=== PATIENT | female | born 2000 | race Caucasian/White ===

== ENCOUNTER 2023-03-15 21:09 | Emergency (ER) | payer OTHER, SELFPAY ==
[2023-03-15] VITALS (15 sets, daily range): BP systolic 115–187; BP diastolic 82–159; PULSE 94–123; RESP 12–18; TEMP 36.9; O2SAT 98–100
[2023-03-15 21:39] LABS: Abs Immature Grans 0.01 10^3/uL (0.0-0.06); Absolute Basophil Count 0.08 10^3/uL (0.0-0.2); Absolute Eosinophil Count 0.98 10^3/uL (0.0-0.7); Absolute Monocyte Count 1.01 10^3/uL (0.1-0.8); Absolute Neutrophil Count 3.32 10^3/uL (1.2-6.7); Basophils % 0.9; Eosinophils % 10.7; HCT 40.5 % (36.0-46.0); HGB 14.4 g/dL (11.2-15.7); Immature Grans % 0.1; Lymphocytes % 41.3; MCH 29.9 pg (27.0-33.0); MCHC 35.6 % (32.0-36.0); MCV 84 fL (80-95); MPV 9.5 fL (8.0-11.0); Platelet Count 275 10^3/uL (130-400); RBC 4.82 10^6/uL (3.93-5.22); RDW 11.8 % (11.7-14.6)
[2023-03-15] MEDS: Normal Saline 1,000 ML 1000 ML IV (21:39)
--- NOTE | 2023-03-15 21:45 | DI.CT_ITS ---
Exam(s) CT ABDOMEN PELVIS W EXAM: CT ABDOMEN PELVIS W CLINICAL HISTORY: RUQ and Left sided abd pain. TECHNIQUE: Imaging Protocol: Axial computed tomography images with coronal and sagittal reformatted images were created and reviewed CONTRAST MATERIAL: Intravenous: Omnipaque 350 Contrast volume:63 ml Oral: yes / no COMPARISON: No exams were available for comparison FINDINGS: ABDOMEN and PELVIS: Lung Bases: No acute findings. Liver: Normal density. No measurable mass. Gallbladder and biliary tract: No radiodense calculus or dilation. Pancreas: Normal density. No abnormal calcifications or inflammatory process. No evidence of mass. Spleen: Normal. Kidneys: Large staghorn calculus of the left kidney extending from the calyces into the pelvis and pr oximal ureter. Severe hydronephrosis. Marked renal parenchymal thinning. Right kidney shows high d ensity material within the medullary region which could indicate medullary nephrocalcinosis. Is diff icult to determine due to lack of noncontrast images. Question of mild right hydronephrosis. No ure teral calculus identified. No suspicious masses seen. Adrenal glands: No masses seen. Vasculature: Abdominal aorta non-dilated. Soft tissues: Unremarkable. Bladder: No gross wall thickening. No calculi.No focal mass. Bowel: No obstruction. No bowel wall thickening. Appendix normal. Peritoneal cavity: No ascites. No focal collection or mesenteric inflammatory response. Bones: Unremarkable for age. Question small right hip joint effusion. Reproductive organs: Within normal limits. Lymph nodes: Unremarkable. IMPRESSION:: Large staghorn calculus and severe left hydronephrosis as well as severe renal parenchy mal thinning indicating chronicity. Question of right medullary nephrocalcinosis. Question of mild right hydronephrosis. No obstructing stone identified. Question small right hip joint effusion. RADIATION DOSE DELIVERED: Total DLP DATA REPOSITORY: All CT scans at this facility are submitted to the National Radiology Data Registry (NRDR) Dose Index Registry (DIR) with the [employer] (A[employer]). RADIATION OPTIMIZATION: All CT scans at this facility use at least one of these dose optimization te chniques: automated exposure control; mA and/or kV adjustment per patient size (includes targeted exa ms where dose is matched to clinical indication); or iterative reconstruction.
--- NOTE | 2023-03-15 21:50 | W.ED.GENAD ---
Discharge Plan Disposition Patient Disposition: Transfer-Acute Inpatient Care Specific Acute Inpt Facility: [facility] Condition: Serious Discharge Details Clinical Impression: Pyelonephritis, Kidney stone on left side Primary Care Provider: Ibeth,Local ED Provider: Elizabeth Spence Home Meds and New Rx's Prescriptions: No Action No Known Home Meds Discharge Data Discharge Date/Time-TO BE ENTERED AT DEPARTURE: 03/16/23 03:25 Medical Decision Making <Elizabeth Spence NP - Last Filed: 03/17/23 13:09> 22-year-old female presents to the ER with a chief complaint of left sided abdominal pain that radiates down the left lower abdominal pain which began last night. She reports nausea no vomiting, poor appetite. Denies any diarrhea or constipation denies any dysuria or problems urinating. She did take Tylenol meloxicam this morning. She reports pain gets better when she bends over. On exam she does appear very thin she is 44 kg. She does have some left lower quadrant abdominal pain with tenderness, and some right upper quadrant abdominal tenderness with palpation and McBurney's point. No right lower quadrant pain. Workup ordered including CBC CMP, lipase urinalysis urine test. CBC shows no leukocytosis, absolute lymphocytes 3.80, CT abdomen pelvis with IV contrast ordered. Urine test is negative. Liter of normal saline ordered 4 mg of Zofran and 2 mg of morphine. Differential diagnosis includes but not limited to cholecystitis, gallstones, gastroenteritis, bowel obstruction which is unlikely, ovarian cyst, ovarian torsion. Ectopic however urine test is negative. No leukocytosis, does have large blood, large leukocytes greater than 50 WBCs cultures pending at this time. Differential also includes pyelonephritis, UTI. 2312: [facility] transfer center contacted to speak with urology. 2336: Spoke with Dr. Ocampo with Urology she recommends a PERC tube, she requested I.R. on the phone. Care is to be handed off to oncoming provider Dr. Patrick Higuera pending call from [facility] and IR. Lab Data Lab results reviewed: Yes I reviewed the patient's lab results. Labs: 03/15/23 21:40 Urine - Reflex from Ua Urine Culture - Pending Laboratory Tests Range/Units 03/15/23 03/15/23 21:29 21:40 WBC (4.4-10.8) 10^3/uL 9.20 RBC (3.93-5.22) 10^6/uL 4.82 Hgb (11.2-15.7) g/dL 14.4 Hct (36.0-46.0) % 40.5 MCV (80-95) fL 84 MCH (27.0-33.0) pg 29.9 MCHC (32.0-36.0) % 35.6 RDW (11.7-14.6) % 11.8 Plt Count (130-400) 10^3/uL 275 MPV (8.0-11.0) fL 9.5 Immature Gran % 0.1 Neutrophils % 36.0 Lymphocytes % 41.3 Monocytes % 11.0 Eosinophils % 10.7 Basophils % 0.9 Nucleated RBC % (0.0-0.3) % 0.0 Absolute Neutrophils (1.2-6.7) 10^3/uL 3.32 Absolute Lymphocytes (1.2-3.4) 10^3/uL 3.80 H Absolute Monocytes (0.1-0.8) 10^3/uL 1.01 H Absolute Eosinophils (0.0-0.7) 10^3/uL 0.98 H Absolute Basophils (0.0-0.2) 10^3/uL 0.08 Sodium (136-145) mmol/L 138 Potassium (3.5-5.1) mmol/L 3.5 Chloride (98-107) mmol/L 101 Carbon Dioxide (21.0-32.0) mmol/L 25.6 Anion Gap (3-11) mmol/L 11.4 H BUN (7-18) mg/dL 14 Creatinine (0.55-1.02) mg/dL 0.9 Est GFR (CKD-EPI 2020) (mL/min/1.73m2) 92.12 Glucose (74-106) mg/dL 96 Calcium (8.5-10.1) mg/dL 9.3 Magnesium (1.8-2.4) mg/dL 2.0 Total Bilirubin (0.2-1.0) mg/dL 0.3 AST (15-37) U/L 18 ALT (14-59) U/L 17 Alkaline Phosphatase (46-116) U/L 71 Total Protein (6.4-8.2) g/dL 7.8 Albumin (3.4-5.0) g/dL 4.3 Lipase (16-77) U/L 37 Urine Color (Yellow) Yellow Urine Clarity (Clear) Cloudy Urine pH (5-8) 6.5 Ur Specific [place] (1.005-1.025) 1.015 Urine Protein (Negative) mg/dL 30 H Urine Ketones (Negative) mg/dL Negative Urine Blood (Negative) Large H Urine Nitrite (Negative) Negative Urine Bilirubin (Negative) Negative Urine Urobilinogen (Up to 0.2) mg/dL 0.2 Ur Leukocyte Esterase (Negative) Large H Urine RBC (0-2) HPF 10-20 H Urine WBC (0-5) HPF >50 H Ur Epithelial Cells (Negative) HPF Few Urine Crystals (Negative) HPF Negative Urine Bacteria (Negative) HPF Moderate Urine Casts (Negative) LPF Negative Urine Mucus (Negative) Negative Ur Culture Indicated? Yes Urine Glucose (Negative) mg/dL Negative HPI <Elziabeth Spence NP - Last Filed: 03/17/23 13:09> General Mode of arrival: ambulatory. Date/Time Provider Initiated Documentation: 03/15/23 21:29. Limitations to Documentation: no limitations. Information obtained by: patient, RN notes reviewed and old records reviewed. HPI Narrative: 22-year-old female presents to the ER with left-sided flank pain that began last night. Associated with nausea unrelieved by Tylenol and meloxicam. She denies any dysuria or problems urinating no diarrhea or constipation. She is here visiting family. She has no significant past medical history or allergies. She reports constant pain that waxes and wanes. Related Data Home Medications Medication Instructions Recorded Confirmed Unknown [No Known Home Meds] 03/15/23 03/15/23 Allergies Allergy/AdvReac Type Severity Reaction Status Date / Time No Known Allergies Allergy Unverified 03/15/23 21:23 General Stated Complaint: Abd Prob REI: 3 Review of Systems <Elizabeth Spence NP - Last Filed: 03/17/23 13:09> All systems reviewed & are unremarkable except as noted in HPI and below Gastrointestinal Gastrointestinal: Reports as per HPI, Reports abdominal pain, Denies diarrhea, Reports nausea and Denies vomiting Genitourinary Genitourinary: Denies difficulty voiding PFSH <Elizabeth Spence NP - Last Filed: 03/17/23 13:09> All Active Problems (Updated 03/16/23 @ 00:05 by Elizabeth Spence NP) Kidney stone on left side (Acute) Pyelonephritis (Acute) Social History Smoking/Tobacco Use Status: Never Smoking risk assessment performed?: Yes Alcohol Intake: current Alcohol Intake frequency: holidays/special occasions only Alcohol type: wine Drug use: Daily Substance use type: marijuana Housing: other Do you feel safe at home: Yes Do you feel safe in your relationship?: Yes Exam <Elizabeth Spence NP - Last Filed: 03/17/23 13:09> Narrative Exam Narrative: Constitutional: Alert and oriented x3. Appears stated age. Thin body habitus. Head: Normocephalic, no trauma. Eyes: Pupils PERRL, Red reflex noted, EOM's intact. Eyelids symmetrical without lesions, discharge, or swelling. Chest: Tachycardia, Normal S1, S2, distal pulses intact. Resp: Lungs clear to auscultation bilaterally, no wheezes, rales, or rhonchi. Abdomen: Soft, non-distended, Normoactive bowel sounds all 4 quads. tender with palpation to LUQ and LLQ. Musculoskeletal: Normal gait, 5/5 strength to all four extremities. Skin: No suspicious rashes or lesions. Capillary refill less than 2 sec. Neurologic: Cranial nerves II-XII intact. Alert and oriented x 3. Motor: No deficits noted. Sensory: Intact bilaterally all 4 extremities. Hematologic/Lymphatic: No ecchymosis, no lymphadenopathy. Course <Elizabeth Spence NP - Last Filed: 03/17/23 13:09> Vital Signs Vital signs: Vital Signs Temperature 36.9 C 03/15/23 21:18 Pulse 113 H 03/15/23 21:18 Respiratory Rate 14 03/15/23 21:18 Blood Pressure 140/95 H 03/15/23 21:18 Pulse Oximetry 98 03/15/23 21:18 Temperature 36.9 C 03/15/23 21:31 Temperature Source Oral 03/15/23 21:31 Pulse 113 H 03/15/23 21:31 Respiratory Rate 14 03/15/23 21:31 Respiratory Effort Normal 03/15/23 21:24 Blood Pressure 140/95 H 03/15/23 21:31 Blood Pressure Position Sitting 03/15/23 21:31 Pulse Oximetry 98 03/15/23 21:31 Oxygen Delivery Method Room Air 03/15/23 21:31 Oxygen Flow Rate 0 03/15/23 21:31 Pain Level 8 03/15/23 21:31 Lab/Test Results Lab/Test Results: Laboratory Tests Range/Units 03/15/23 21:29 WBC (4.4-10.8) 10^3/uL 9.20 RBC (3.93-5.22) 10^6/uL 4.82 Hgb (11.2-15.7) g/dL 14.4 Hct (36.0-46.0) % 40.5 MCV (80-95) fL 84 MCH (27.0-33.0) pg 29.9 MCHC (32.0-36.0) % 35.6 RDW (11.7-14.6) % 11.8 Plt Count (130-400) 10^3/uL 275 MPV (8.0-11.0) fL 9.5 Immature Gran % 0.1 Neutrophils % 36.0 Lymphocytes % 41.3 Monocytes % 11.0 Eosinophils % 10.7 Basophils % 0.9 Nucleated RBC % (0.0-0.3) % 0.0 Absolute Neutrophils (1.2-6.7) 10^3/uL 3.32 Absolute Lymphocytes (1.2-3.4) 10^3/uL 3.80 H Absolute Monocytes (0.1-0.8) 10^3/uL 1.01 H Absolute Eosinophils (0.0-0.7) 10^3/uL 0.98 H Absolute Basophils (0.0-0.2) 10^3/uL 0.08 PAWSS <Elizabeth Spence NP - Last Filed: 03/17/23 13:09> Have you Been Recently Intoxicated or Drunk Within the Last 30 days?: No Have you Ever Experienced Previous Episodes of Alcohol Withdrawal?: No Have you ever Experienced Withdrawal Seizures?: No Have you ever Experienced Delirium Tremens(DT)s?: No Have you ever undergone Alcohol Rehabilitation Treatment (i.e, inpt ot outpatient treatment programs)?: No Have you ever Experienced Blackouts?: No Have you ever Combined Alcohol with any other Substance of Abuse during the last 90 days?: No Evidence of Increased Autonomic Activity (i.e. HR>120, tremor, sweating, agitation, nausea)?: No Result: 0 <Tenzin Higuera DO - Last Filed: 03/16/23 00:35> Result: 0
[2023-03-15 21:52] LABS: Bilirubin Negative (Negative); Blood Large (Negative); Clarity Cloudy (Clear); Glucose Negative (Negative); Ketones Negative (Negative); Leukocyte Esterase Large (Negative); Nitrite Negative (Negative); Specific Gravity 1.015 (1.005-1.025); Urobilinogen 0.2 mg/dL (Up to 0.2); pH 6.5 (5-8)
[2023-03-15 21:57] LABS: ALT 17 U/L (14-59); AST 18 U/L (15-37); Albumin 4.3 g/dL (3.4-5.0); Alkaline Phosphatase 71 U/L (46-116); Anion Gap 11.4 mmol/L (3-11); BUN 14 mg/dL (7-18); Bilirubin, Total 0.3 mg/dL (0.2-1.0); CO2 25.6 mmol/L (21.0-32.0); CREATININE 0.9 mg/dL (0.55-1.02); Calcium 9.3 mg/dL (8.5-10.1); Chloride 101 mmol/L (98-107); Estimated GFR 92.12 (mL/min/1.73m2); Glucose 96 mg/dL (74-106); Lipase 37 U/L (16-77); Potassium 3.5 mmol/L (3.5-5.1); Sodium 138 mmol/L (136-145); Total Protein 7.8 g/dL (6.4-8.2)
[2023-03-15 21:59] LABS: Bacteria Moderate HPF (Negative); C & S Indicated? Yes; Casts Negative LPF (Negative); Crystals Negative HPF (Negative); Epithelial Cells Few HPF (Negative); Mucus Negative (Negative); WBC >50 HPF (0-5)
[2023-03-15] MEDS: Ondansetron 4 MG/2 ML VIAL IVP (22:03)
[2023-03-15] MEDS: Omnipaque 350 MG/ML 100 ML BTL IJ (22:34)
[2023-03-15] MEDS: Normal Saline - Diluent 50 ML VIAL IV (22:34)
[2023-03-15] MEDS: cefTRIAXone 1 GM/50 ML BAG IVPB (22:53)
--- NOTE | 2023-03-15 23:27 | DI.VRAD_ITS ---
PROCEDURE INFORMATION: Exam: CT Abdomen And Pelvis With Contrast Exam date and time: 03/15/2023 10:37 PM Age: 22 years old Clinical indication: Abdominal pain; Localized; Other: Ruq and left sided TECHNIQUE: Imaging protocol: Computed tomography of the abdomen and pelvis with contrast. Contrast material: OMNIPAQUE 350; Contrast volume: 63 ml; Contrast route: INTRAVENOUS (IV); COMPARISON: No relevant prior studies available. FINDINGS: Liver: Normal. No mass. Gallbladder and bile ducts: Normal. No calcified stones. No ductal dilation. Pancreas: Unremarkable. Spleen: Normal. Adrenal glands: Normal. No mass. Kidneys and ureters: Sent the granulomatous pyelonephritis of left kidney: Very large staghorn calculus extending from the calices through the renal pelvis and into proximal left ureter with substantial diffuse dilatation the calices and severe diffuse renal parenchymal thinning. Stomach and bowel: Unremarkable. No bowel wall thickening or intestinal obstruction. Appendix: Normal appendix. Intraperitoneal space: Unremarkable. No pneumoperitoneum. No abscess. Vasculature: Unremarkable. Lymph nodes: Unremarkable. Urinary bladder: Unremarkable as visualized. Reproductive: Collapsed/ruptured/involuted cyst remnant in the left ovary measuring 2.4 cm. Bones/joints: May be a small right hip joint effusion to head of the femur. Soft tissues: Unremarkable. IMPRESSION: 1. Collapsed/ruptured/involuted cyst remnant in the left ovary measuring 2.4 cm. 2. Sent the granulomatous pyelonephritis of left kidney: Very large staghorn calculus extending from the calices through the renal pelvis and into proximal left ureter with substantial diffuse dilatation the calices and severe diffuse renal parenchymal thinning. 3. May be a small right hip joint effusion to head of the femur. Dictated and Authenticated by: Austen Cabezas MD. Ordering:COSME Johnson MD
--- NOTE | 2023-03-15 23:37 | ED.PROG_ITS ---
Date of service: 03/15/23 Time of Service: 23:37 Medical Decision Making Consultation requested by nurse practitioner Elizabeth Richardson. Patient presents with flank pain on the left. Please disregard right side that was noted in the triage note. Pending CT scan results, I did review the case, and reviewed the i mages. Large staghorn colliculi noted, with the patient's urinalysis showing evidence of infection this does bring about significant concern. Recommend antibacterial coverage with fourth-generation cephalosporins and further discussion with [facility] for urologic management. Gets discussed the case with the urologist Dr. Meyer. He agrees with the assessment and plan. Patient will be transferred to [facility] for further urologic management. I have extensively reviewed the treatment plan with the patient. I have addressed all patient concerns at this time. I have also discussed the plan with the admitting physician and they agree with the current assessment and plan and have agreed to assume responsibility for the patient. All parties demonstrate verbal understanding and agreement with our assessment and plan at this time. The documentation in this chart was dictated using [email or web address] dictation software. Please excuse any dictation errors. At time of transfer the patient was reassessed and continued to demonstrate No signs of acute respiratory distress requiring intubation, hemodynamic instability requiring pressor support, or rapidly declining mental status. Sign Out Sign Out Data: Sign Out Comment: Pending Call back from [facility] urology and I.R pending transfer for placement of urgent PERC tube. Last updated by Elizabeth Spence NP at 03/15/23 23:51 Discharge Plan Disposition Patient Disposition: Transfer-Acute Inpatient Care Specific Acute In Facility: [facility] Condition: Serious Discharge Details Clinical Impression: Pyelonephritis, Kidney stone on left side Primary Care Provider: Ibeth,Local ED Provider: Elizabeth Spence Home Meds and New Rx's Prescriptions: No Action No Known Home Meds
[2023-03-15] MEDS: CEFEPIME 2 GM in Normal Saline 100 ML IVPB (23:49)
[2023-03-16] VITALS (36 sets, daily range): BP systolic 102–157; BP diastolic 59–133; PULSE 93–125; RESP 11–34; TEMP 36.9; O2SAT 93–100
[2023-03-16] MEDS: LORazepam 2 MG/ML VIAL 1 MG IVP ×3 (00:28→02:47)
[2023-03-16] MEDS: ACETAMINOPHEN 1,000 MG/100 ML BTL 400 MG IVPB (00:47)
[2023-03-16] MEDS: Ketorolac 15 MG/ML VIAL IVP (00:47)
[2023-03-16] MEDS: Loratidine 10 MG TAB PO (00:58)
[2023-03-16] MEDS: diphenhydrAMINE 25 MG CAP PO (00:58)
== END 2023-03-16 03:25 | disposition short-term general hospital (02) ==
PROVIDERS: Emergency Provider Registered Nurse Emergency
DX: N13.6 Pyonephrosis (principal)
CPT/HCPCS: 00123; 36415; 80053; 81025; 83690; 96361; 96365; 96367; 96375; 96376; 99285; 74177; 81003; 81015; 83735; 85025; 87086; J0131; J0696; J1885; J2060; J2405; J3490